=== PATIENT | female | born 1965 | race Asian ===

== ENCOUNTER → 2016-12-13 | Outpatient (CLI) | payer OTHER ==
--- NOTE | 2016-12-13 10:32 | RADIOLOGY REPORT (SQ) ---
EXAM DESCRIPTION: U/S ABDOMEN LIMITED W/O DOP COMPLETED DATE/TIME: 12/13/2016 9:26 am REASON FOR STUDY: CHRONIC VIRAL HEPATITIS B B18.1 CHRONIC VIRAL HEPATITIS B WITHOUT DELTA-AGENT COMPARISON: 03/06/2015 TECHNIQUE: Dynamic and static grayscale images acquired of the abdomen and recorded on PACS. Michaelo daron selected color Doppler and spectral images recorded. LIMITATIONS: None. FINDINGS: PANCREAS: No masses. Visualized pancreatic duct normal caliber. LIVER: 15.7 cm. Normal echotexture. LIVER VASCULATURE: Normal directional flow of the main portal vein and hepatic veins. GALLBLADDER: No stones. Normal wall thickness. No pericholecystic fluid. ULTRASOUND-DETECTED DENTON'S SIGN: Negative. INTRAHEPATIC DUCTS AND COMMON DUCT: Common bile duct is normal at 5 mm. There is no intrahepatic john zay dilatation. INFERIOR VENA CAVA: Normal flow. AORTA: No aneurysm. RIGHT KIDNEY: Normal size, 10.5 cm. Normal echogenicity. No solid or suspicious masses. No hydroneph rosis. No calcifications. PERITONEAL AND RIGHT PLEURAL SPACE: No ascites or effusions. OTHER: No other significant findings. IMPRESSION: NORMAL RIGHT UPPER QUADRANT ULTRASOUND. TECHNICAL DOCUMENTATION: JOB ID: [id number] [employer]- All Rights Reserved
== END ==
LOC: RAD 08:46
PROVIDERS: ATTEND Internal Medicine Gastroenterology
DX: B18.1 Chronic viral hepatitis B without delta-agent (principal)
CPT/HCPCS: 76705

== ENCOUNTER → 2017-12-16 | Outpatient (CLI) | payer OTHER ==
--- NOTE | 2017-12-16 08:43 | RADIOLOGY REPORT (SQ) ---
EXAM DESCRIPTION: U/S ABDOMEN LIMITED W/O DOP COMPLETED DATE/TIME: 12/16/2017 8:34 am REASON FOR STUDY: CHRONIC HEP B W/O DELTA-AGENT (B18.1) B18.1 CHRONIC VIRAL HEPATITIS B WITHOUT DEL TA-AGENT COMPARISON: None. TECHNIQUE: Dynamic and static grayscale images acquired of the liver and recorded on PACS. Additiona l selected color Doppler and spectral images recorded. Selected velocities recorded. LIMITATIONS: None. FINDINGS: LIVER: Normal in echogenicity and size. No focal lesions are seen. LIVER VASCULATURE: Normal directional flow of the main portal vein and hepatic veins. The IVC is pat ent. GALLBLADDER: No stones. Normal wall thickness. No pericholecystic fluid. ULTRASOUND-DETECTED DENTON'S SIGN: Negative. INTRAHEPATIC DUCTS AND COMMON DUCT: No dilated intrahepatic ducts. CBD diameter normal. ASCITES: None. OTHER: No other significant finding. IMPRESSION: NORMAL LIVER ULTRASOUND. TECHNICAL DOCUMENTATION: JOB ID: [id number] [employer]- All Rights Reserved Reading location - IP/workstation name: [email or web address]
[2017-12-16 09:16] LABS: ALANINE AMINOTRANSFERASE 30 U/L (9-52); ALBUMIN 4.5 g/dL (3.5-5.0); ALKALINE PHOSPHATASE 59 U/L (38-126); ASPARTATE AMINO TRANSFERASE 25 U/L (14-36); BILIRUBIN,DIRECT 0.2 mg/dL (0.0-0.4); BILIRUBIN,TOTAL 0.5 mg/dL (0.2-1.3); TOTAL PROTEIN 7.9 g/dL (6.3-8.2)
[2017-12-17 08:22] LABS: HEPATITIS B CORE AB TOT Positive (Negative); HEPATITS B SURFACE ANTIGEN Positive (Negative)
== END ==
LOC: RAD 07:29
PROVIDERS: ATTEND Internal Medicine Gastroenterology
DX: B18.1 Chronic viral hepatitis B without delta-agent (principal)
CPT/HCPCS: 36415; 76705; 80076; 86704; 87340; 87517

== ENCOUNTER → 2018-08-03 | Outpatient (CLI) | payer OTHER ==
--- NOTE | 2018-08-03 10:44 | WOMENS IMAGING REPORT ---
EXAM DESCRIPTION: BILAT SCREENING MAMMO W/CAD COMPLETED DATE/TIME: 08/03/2018 9:01 am REASON FOR STUDY: Z12.31 ROUTINE BILATERAL [id number] ENCNTR SCREEN MAMMOGRAM FOR MALIGNANT NE OPLASM OF JONO COMPARISON: [id number]. TECHNIQUE: Standard craniocaudal and mediolateral oblique views of each breast recorded using [employer] l acquisition. LIMITATIONS: None. FINDINGS: RIGHT BREAST MASSES: No suspicious masses. CALCIFICATIONS: No new or suspicious calcifications. ARCHITECTURAL DISTORTION: None. DEVELOPING DENSITY: None. ASYMMETRY: None noted. OTHER: No other significant findings. LEFT BREAST MASSES: No suspicious masses. CALCIFICATIONS: Upper outer quadrant posterior 3rd not seen on the CC view. ARCHITECTURAL DISTORTION: None. DEVELOPING DENSITY: None. ASYMMETRY: None noted. OTHER: No other significant findings. Read with the assistance of CAD. [facility] - R2 [employer] Version 1.3 .[facility] - R2 Cen[employer] Version 1.3 .[facility] - R2 Cenova Version 2.4 .[facility] [place] - R2 Cenova Version 2.4 .[facility] - R2 [employer] Version 9.2 IMPRESSION: Calcifications left breast. BREAST DENSITY: d. The breasts are extremely dense, which lowers the sensitivity of mammography. BIRAD: 0 Incomplete: Needs Additional Imaging Evaluation and/or prior Mammograms for Comparison. RECOMMENDATION: RECOMMENDED FOLLOW-UP: True lateral, exaggerated CC and magnification views left jono ast. The patient will be contacted for additional imaging. COMMENT: The patient has been notified of the results by letter per SA requirements. Additional no tification policies are in place for contacting patient with suspicious or incomplete findings. Quality ID #225: The [employer] recommends an annual screening mammogram for women aged 40 years or over. This facility utilizes a reminder system to ensure that all patients receive reminder letters, and/or direct phone calls for appointments. This includes reminders for routine scr eening mammograms, diagnostic mammograms, or other Breast Imaging Interventions when appropriate. Th is patient will be placed in the appropriate reminder system. The [employer] (ACR) has developed recommendations for screening MRI of the breast s in certain patient populations, to be used in conjunction with mammography. Breast MRI surveillanc e may be appropriate for women with more than 20% lifetime risk of developing breast cancer as deter mined by genetic testing, significant family history of the disease, or history of mantle radiation f or Hodgkins Disease. ACR Practice Guidelines 2008. TECHNICAL DOCUMENTATION: FINDING NUMBER: (1) ASSESSMENT: (1) JOB ID: [id number] [employer]- All Rights Reserved Reading location - IP/workstation name: [email or web address]
== END ==
LOC: WI 08:45
PROVIDERS: ATTEND Physician Assistant
DX: Z12.31 Encounter for screening mammogram for malignant neoplasm of breast (principal)
CPT/HCPCS: 77067

== ENCOUNTER → 2018-08-19 | Outpatient (CLI) | payer OTHER ==
--- NOTE | 2018-08-20 13:08 | WOMENS IMAGING REPORT ---
EXAM DESCRIPTION: LEFT DIAGNOSTIC MAMMO W/CAD COMPLETED DATE/TIME: 08/19/2018 9:13 am REASON FOR STUDY: N63.21 UNSPECIFIED LUMP IN THE LEFT BREAST,UPPER OUTER QUADRANT N63.21 UNSPECIFIE D LUMP IN THE LEFT BREAST, UPPER OUTER QUAD COMPARISON: 08/03/2018 TECHNIQUE: True lateral, exaggerated CC and magnification views. LIMITATIONS: None. FINDINGS: BREAST LATERALITY: left MASSES: No suspicious masses. CALCIFICATIONS: Previously described calcifications have uniform density without evidence of branchin g or associated mass. ARCHITECTURAL DISTORTION: None. DEVELOPING DENSITY: None. ASYMMETRY: None noted. OTHER: No other significant findings. IMPRESSION: Benign findings. BREAST DENSITY: d. The breasts are extremely dense, which lowers the sensitivity of mammography. BIRAD: 2 Benign findings. RECOMMENDATION: RECOMMENDED FOLLOW UP: Birads 1 or 2: The patient should resume routine screening . SPECIFIC INTERVENTION/IMAGING/CONSULTATION RECOMMENDED:No additional intervention/ imaging/consultati on needed at this time. COMMUNICATION:The imaging findings were not discussed with the patient. Her referring provider has be en notified of the findings. COMMENT: The patient has been notified of the results by letter per SA requirements. Additional no tification policies are in place for contacting patient with suspicious or incomplete findings. Quality ID #225: The [employer] recommends an annual screening mammogram for women aged 40 years or over. This facility utilizes a reminder system to ensure that all patients receive reminder letters, and/or direct phone calls for appointments. This includes reminders for routine scr eening mammograms, diagnostic mammograms, or other Breast Imaging Interventions when appropriate. Th is patient will be placed in the appropriate reminder system. The [employer] (ACR) has developed recommendations for screening MRI of the breast s in certain patient populations, to be used in conjunction with mammography. Breast MRI surveillanc e may be appropriate for women with more than 20% lifetime risk of developing breast cancer as deter mined by genetic testing, significant family history of the disease, or history of mantle radiation f or Hodgkins Disease. ACR Practice Guidelines 2008. TECHNICAL DOCUMENTATION: FINDING NUMBER: (1) ASSESSMENT: (1) JOB ID: [id number] [employer]- All Rights Reserved Reading location - IP/workstation name: [email or web address]
== END ==
LOC: WI 07:55
PROVIDERS: ATTEND Physician Assistant
DX: R92.0 Mammographic microcalcification found on diagnostic imaging of breast (principal)

== ENCOUNTER → 2019-10-21 | Outpatient (CLI) | payer OTHER ==
--- NOTE | 2019-10-21 11:36 | WOMENS IMAGING REPORT ---
EXAM DESCRIPTION: BILAT SCREENING MAMMO W/CAD IMAGES COMPLETED DATE/TIME: 10/21/2019 10:30 am REASON FOR STUDY: Z12.31 SCREENING MAMMO Z12.31 ENCNTR SCREEN MAMMOGRAM FOR MALIGNANT NEOPLASM OF B RE COMPARISON: 2013, 2018 EXAM PARAMETERS: Standard craniocaudal and mediolateral oblique views of each breast recorded using digital acquisition. Read with the assistance of CAD. .[facility] - [employer] Version 9.2 LIMITATIONS: None. FINDINGS: No suspicious masses, suspicious calcifications or architectural distortion. No areas of c oncern. IMPRESSION: NEGATIVE MAMMOGRAM. BIRADS 1 BREAST DENSITY: d. The breasts are extremely dense, which lowers the sensitivity of mammography. BIRAD: ASSESSMENT: 1 NEGATIVE RECOMMENDATION: ROUTINE SCREENING COMMENT: The patient has been notified of the results by letter per MQSA requirements. Additional no tification policies are in place for contacting patient with suspicious or incomplete findings. Quality ID #225: The [employer] recommends an annual screening mammogram for women aged 40 years or over. This facility utilizes a reminder system to ensure that all patients receive reminder letters, and/or direct phone calls for appointments. This includes reminders for routine scr eening mammograms, diagnostic mammograms, or other Breast Imaging Interventions when appropriate. Th is patient will be placed in the appropriate reminder system. TECHNICAL DOCUMENTATION: FINDING NUMBER: (1) ASSESSMENT: (1) JOB ID: [id number] 2010 [employer]- All Rights Reserved Reading location - IP/workstation name: [email or web address]
== END ==
LOC: WI 10:10
PROVIDERS: ATTEND Physician Assistant
DX: Z12.31 Encounter for screening mammogram for malignant neoplasm of breast (principal)
CPT/HCPCS: 77067

== ENCOUNTER → 2020-02-23 | Outpatient (CLI) | payer OTHER ==
--- NOTE | 2020-02-23 12:46 | RADIOLOGY REPORT (SQ) ---
EXAM DESCRIPTION: U/S ABDOMEN LIMITED W/O DOP IMAGES COMPLETED DATE/TIME: 02/23/2020 9:06 am REASON FOR STUDY: B18.1 CHRONIC VIRAL HEPATITIS B WITHOUT DELTA-AGENT B18.1 CHRONIC VIRAL HEPATITIS B WITHOUT DELTA-AGENT COMPARISON: None. TECHNIQUE: Dynamic and static grayscale images acquired of the abdomen and recorded on PACS. Additio nal selected color Doppler and spectral images recorded. LIMITATIONS: None. FINDINGS: PANCREAS: No masses. Visualized pancreatic duct normal caliber. LIVER: No masses. Echotexture normal. LIVER VASCULATURE: Normal directional flow of the main portal vein and hepatic veins. GALLBLADDER: No stones. Normal wall thickness. No pericholecystic fluid. ULTRASOUND-DETECTED DENTON'S SIGN: Negative. INTRAHEPATIC DUCTS AND COMMON DUCT: CBD and intrahepatic ducts normal caliber. No filling defects. INFERIOR VENA CAVA: Normal flow. AORTA: No aneurysm. RIGHT KIDNEY: Normal size. Normal echogenicity. No solid or suspicious masses. No hydronephrosis. No calcifications. PERITONEAL AND RIGHT PLEURAL SPACE: No ascites or effusions. OTHER: No other significant findings. IMPRESSION: NORMAL RIGHT UPPER QUADRANT ULTRASOUND. TECHNICAL DOCUMENTATION: JOB ID: [id number] 2010 [employer]- All Rights Reserved Reading location - IP/workstation name: [email or web address]
== END ==
LOC: RAD 07:55
PROVIDERS: ATTEND Internal Medicine Gastroenterology
DX: B18.1 Chronic viral hepatitis B without delta-agent (principal)
CPT/HCPCS: 76705